=== PATIENT | male | born 1975 | race Caucasian/White ===

== ENCOUNTER 2019-01-31 12:51 | Emergency (ER) | payer OTHER ==
[2019-01-31] MEDS ORDERED: ONDANSETRON HCL INJ/PF 4 MG/2 ML SDV IV ONE ×2 (13:48→15:58)
[2019-01-31] MEDS ORDERED: KETOROLAC TROMETHAMINE INJ/PF 30 MG/1 ML SDV IV ONE (13:48)
--- NOTE | 2019-01-31 13:51 | ER Document Report ---
ED Medical Screen (RME) - General Chief Complaint: Possible Kidney Stone Stated Complaint: FLANK PAIN Time Seen by Provider: 01/31/19 13:47 Mode of Arrival: Ambulatory Information source: Patient Notes: Patient presents to the emergency department with complaints of left testicular pain started this morning. Reports he felt a little tingle last night and woke up this morning with pain increased pain as a day went on after he went to work. Denies trauma. Reports when he voided he had pure blood coming out. Denies testicular trauma. Reports history of kidney stones. Reports some left-sided pelvic pain. No other symptoms such as fever vomiting diarrhea. Patient denies lifting anything heavy. I have greeted and performed a rapid initial assessment of this patient. A comprehensive ED assessment and evaluation of the patient, analysis of test results and completion of the medical decision making process will be conducted by additional ED providers. Dictation of this chart was performed using voice recognition software; therefore, there may be some unintended grammatical errors. TRAVEL OUTSIDE OF THE [place] IN LAST 30 DAYS: No - Related Data Allergies/Adverse Reactions: No Known Allergies Allergy (Unverified 01/31/19 13:18) Past Medical History - Social History Frequency of alcohol use: None Drug Abuse: None Renal/ Medical History: Reports: Hx Kidney Stones. Denies: Hx Peritoneal Dialysis Past Surgical History: Reports: Hx Appendectomy, Hx Cholecystectomy, Hx Kidney (Renal Surgery) - stones removed Physical Exam - Vital signs Vitals: Temp Pulse Resp BP Pulse Ox 97.7 F 76 18 156/103 H 96 01/31/19 13:25 01/31/19 13:25 01/31/19 13:25 01/31/19 13:25 01/31/19 13:25 Course - Vital Signs Vital signs: Temp Pulse Resp BP Pulse Ox 97.7 F 76 18 156/103 H 96 01/31/19 13:25 01/31/19 13:25 01/31/19 13:25 01/31/19 13:25 01/31/19 13:25
--- NOTE | 2019-01-31 14:20 | ER Document Report ---
HPI - HPI Patient complains to provider of: left lower abdominal pain Time Seen by Provider: 01/31/19 13:47 Onset: This morning Onset/Duration: Sudden, Intermittent Quality of pain: Sharp Severity: Moderate Pain Level: 4 Context: 43 yr old male pt with the listed pmh, here for lower quadrant abdominal pain that radiates to his left testicle intermittently for 1 day. He has had this before in the past when he had a kidney stone. has been able to pass most of his stones in the past however has required lithotripsy twice. Denies any testi cular swelling or lesions. No trauma or injury. States feels like his usual kidney stones when he gets them. He states he has been told his white count has been a little high each time he has had this. no prior hx of cancer. No trauma or injury. no hx of diabetes or asthma. normal bms. he did have some hematuria and dysuria earlier. no frequency or anuria. no penile dc/rash/lesions, or concerns for stds. denies swelling or hx of hernias. no abd surgeries other than a remote appendectomy and cholecystectomy. no recent abx or steroids. hasn't taken anything for sx. no hx of gerd, gb dz, pancreatitis, gi bleed, ulcers, ibs, or crohns. no sick contacts. no uri sx. no rash. no excessive nsaid use or etoh. no recent illness. pain not worse with eating. denies changes in color or caliber of stool. no other associated sx. Associated Symptoms: None Exacerbated by: denies: Standing, Movement Relieved by: Remaining still Similar symptoms previously: Yes Recently seen / treated by doctor: No - ROS Systems Reviewed and Negative: Yes All other systems reviewed and negative - unless mentioned in the hpi Past Medical History - General Information source: Patient - Social History Smoking Status: Never Smoker Frequency of alcohol use: None Drug Abuse: None Patient has suicidal ideation: No Patient has homicidal ideation: No Renal/ Medical History: Reports: Hx Kidney Stones. Denies: Hx Peritoneal Dialysis Past Surgical History: Reports: Hx Appendectomy, Hx Cholecystectomy, Hx Kidney (Renal Surgery) - stones removed Vertical Provider Document - CONSTITUTIONAL Notes: >>>> PHYSICAL_EXAM: GENERAL_APPEARANCE: well_nourished, alert, cooperative, no_acute_distress, mild obvious_discomfort. Pleasant, obese middle aged white male, appears uncomfortable but not toxic, smiling, speaking in full sentences, easily sitting up, in no sign of resp distress, nontoxic, VITALS: reviewed, see vital signs table. HEAD: normocephalic. atraumatic. no kim signs. no raccoon eyes. EYES: PERRL, EOMI, (-)scleral icterus. NOSE: no_nasal_discharge. MOUTH: (-)decreased moisture. THROAT: no_tonsilar_inflammation/hypertrophy/exudate. no lymphadenopathy NECK: supple, no_neck_tenderness, full rom. full strength. no meningeal signs. BACK: no_back_tenderness. CHEST_WALL: no_chest_tenderness. LUNGS: no_wheezing, (-)accessory muscle use, good air exchange bilateral. HEART: normal_rate, normal_rhythm, ABDOMEN: normal_BS, soft, abdomen-diffuse, mildly ttp llq, obese abd exam some what limited (-)guarding, (-)rebound, no distension or peritoneal signs. neg murphys. neg mcburneys. neg heel strike. neg obturator. neg psoas. neg rovsign. no cva tenderness GENITALS: deferred by pt RECTAL: deferred EXTREMITIES:strength 5/5 in all_extremities, good pulses in all_extremities, no_edema, no_swelling\tenderness. full rom. normal gait. brisk cap refill. 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 SKIN: warm, dry, good_color, n _rash. no grossly visible overlying skin changes to suggest trauma unless otherwise noted. NEURO: motor_intact, sensory_intact. cranial nerves 2-12 intact, cerebellar fxn intact MENTAL_STATUS: normal_affect, speech_clear, oriented_X_3, responds_appropriately to questions. - INFECTION CONTROL TRAVEL OUTSIDE OF THE [place] IN LAST 30 DAYS: No Course - Re-evaluation Re-evalutation: 01/31/19 16:17 Patient here for left lower quadrant abdominal pain that radiates his left t esticle. History of renal stones in the past and it feels similar. He is afebrile, he has had no vomiting, his abdomen is soft and non-peritoneal nonsurgical on exam. His labs are notable for mild leukocytosis, normal renal function, and a urinary tract infection. He has no concerns for STDs. He denies any penile discharge or lesions. His scrotal ultrasound was negative per radiology and reviewed by myself. His renal ultrasound did show a nonobstructing punctate stone in the lower pole per radiology and reviewed by myself. Patient informed of his findings. He responded well to fluids, pain medication, and Flomax here. He was also given Rocephin here. Will discharge him with a urine strainer. Urine culture and gc/chlam is pending. Advised we will call with any abnormal results that require change in plan of care. Follow-up with urology 1 to 2 days. Return for any worsening symptoms. Patient understands agrees to plan. Will discharge him with Zofran, Keflex, Percocet, and Flomax. On reexam, pt improved with tx listed. remained stable. nontoxic. well appearing. pain controlled. tolerating po. requesting to go home. case discussed with ER Attending, Dr. sutherland, who directed and agrees with plan of care and advised no further workup indicated at this time and pt is stable for dc home with close f/u with pcp/specialist. Documentation achieved through voice recording which my lead to some occasional accidental typographical errors. Extensive efforts have been made to proof read documentation to make sure these are the least as possible. Category Date Time Status Saline Lock (ED) NOW Care 01/31/19 13:48 Active Renal Ultrasound [U/S RETROPERITON LTD] [US] Stat Exams 01/31/19 13:48 Completed U/S SCROTUM W/DOPPLER [US] Stat Exams 01/31/19 13:48 Completed ADD ON [ADD ON TESTING BLD IN LAB] [CHEM] Stat Lab 01/31/19 15:41 Ordered CBC WITH DIFF [HEME] Stat Lab 01/31/19 14:11 Completed CHLAM DIMAS PCR URINE INHOUSE [MO] Stat Lab 01/31/19 15:43 Uncollected COMPREHENSIVE METABOLIC PANEL [CHEM] Stat Lab 01/31/19 14:11 Completed LACTIC ACID SEPSIS [CHEM] Stat Lab 01/31/19 15:43 Ordered LIPASE [CHEM] Stat Lab 01/31/19 14:11 Completed URINALYSIS [URIN] Stat Lab 01/31/19 13:56 Completed URINE CULTURE [MC] Stat Lab 01/31/19 15:43 Uncollected Ceftriaxone 1 gm/D5w RTU [Rocephin RTU 1 gm/D5w 50 ml Med 01/31/19 15:42 Active Premix] 1 gm in 50 ml IV NOW Ketorolac Tromethamine [Toradol Inj/Pf 30 mg/1 ml Sdv] Med 01/31/19 13:48 Discontinued 30 mg IV NOW ONE Morphine Sulfate [Morphine 10 mg/ml Inj] Med 01/31/19 15:58 Once 4 mg IV NOW ONE Normal Saline 1000 ml [NaCl 0.9% 1000 ml IV Soln] 1,000 Med 01/31/19 15:05 Discontinued ml IV BOLUS Ondansetron HCl/Pf [Zofran Inj/Pf 4 mg/2 ml Sdv] Med 01/31/19 13:48 Discontinued 4 mg IV NOW ONE Ondansetron HCl/Pf [Zofran Inj/Pf 4 mg/2 ml Sdv] Med 01/31/19 15:58 Once 4 mg IV NOW ONE Tamsulosin HCl [Flomax 0.4 mg Cap.sr] Med 01/31/19 15:58 Once 0.4 mg PO NOW ONE 01/31/19 16:22 01/31/19 16:24 - Vital Signs Vital signs: Temp Pulse Resp BP Pulse Ox 97.7 F 76 18 156/103 H 96 01/31/19 13:25 01/31/19 13:25 01/31/19 13:25 01/31/19 13:25 01/31/19 13:25 - Laboratory Result Diagrams: 01/31/19 14:11 01/31/19 14:11 Laboratory results interpreted by me: 01/31/19 16:20 Labs- All tests 24 hr 01/31/19 01/31/19 01/31/19 13:56 14:11 14:11 WBC 15.8 H RBC 5.06 Hgb 15.2 Hct 45.7 MCV 90 MCH 30.0 MCHC 33.2 RDW 14.5 H Plt Count 248 Seg Neutrophils % 62.8 Lymphocytes % 27.9 Monocytes % 7.2 Eosinophils % 1.6 Basophils % 0.5 Absolute Neutrophils 9.9 H Absolute Lymphocytes 4.4 Absolute Monocytes 1.1 Absolute Eosinophils 0.2 Absolute Basophils 0.1 Sodium 139.6 Potassium 4.0 Chloride 103 Carbon Dioxide 29 Anion Gap 8 BUN 9 Creatinine 0.96 Est GFR ( Amer) > 60 Est GFR (Non-Af Amer) > 60 Glucose 76 Calcium 9.0 Total Bilirubin 0.6 Direct Bilirubin 0.2 Neonat Total Bilirubin Not Reportable Neonat Direct Bilirubin Not Reportable Neonat Indirect Bili Not Reportable AST 29 ALT 33 Alkaline Phosphatase 85 Total Protein 7.3 Albumin 4.1 Lipase Urine Color BROWN Urine Appearance CLEAR Urine pH 6.0 Ur Specific [place] 1.026 Urine Protein 100 H Urine Glucose (UA) NEGATIVE Urine Ketones TRACE H Urine Blood LARGE H Urine Nitrite NEGATIVE Urine Bilirubin NEGATIVE Urine Urobilinogen 2.0 H Ur Leukocyte Esterase TRACE H Urine WBC (Auto) >182 Urine RBC (Auto) >182 Urine Mucus (Auto) FEW Urine Ascorbic Acid 40 H 01/31/19 14:11 WBC RBC Hgb Hct MCV MCH MCHC RDW Plt Count Seg Neutrophils % Lymphocytes % Monocytes % Eosinophils % Basophils % Absolute Neutrophils Absolute Lymphocytes Absolute Monocytes Absolute Eosinophils Absolute Basophils Sodium Potassium Chloride Carbon Dioxide Anion Gap BUN Creatinine Est GFR ( Amer) Est GFR (Non-Af Amer) Glucose Calcium Total Bilirubin Direct Bilirubin Neonat Total Bilirubin Neonat Direct Bilirubin Neonat Indirect Bili AST ALT Alkaline Phosphatase Total Protein Albumin Lipase 307.5 H Urine Color Urine Appearance Urine pH Ur Specific [place] Urine Protein Urine Glucose (UA) Urine Ketones Urine Blood Urine Nitrite Urine Bilirubin Urine Urobilinogen Ur Leukocyte Esterase Urine WBC (Auto) Urine RBC (Auto) Urine Mucus (Auto) Urine Ascorbic Acid - Diagnostic Test Radiology reviewed: Image reviewed, Reports reviewed Radiology results interpreted by me: 01/31/19 16:20 Renal Ultrasound 01/31/19 13:48 IMPRESSION: 1. Tiny nonobstructive calculi present in the inferior pole. No hydronephrosis. 2. Decompressed urinary bladder. Scrotum Ultrasound 01/31/19 13:48 IMPRESSION: NORMAL SCROTAL ULTRASOUND. NO EVIDENCE OF TESTICULAR MASS OR TORSION. Discharge - Discharge Clinical Impression: Renal stone UTI (urinary tract infection) Qualifiers: Urinary tract infection type: site unspecified Hematuria presence: with hematuria Qualified Code(s): N39.0 - Urinary tract infection, site not specified Leukocytosis Qualifiers: Leukocytosis type: unspecified Qualified Code(s): D72.829 - Elevated white blood cell count, unspecified Condition: Good Disposition: HOME, SELF-CARE Instructions: Urinary Tract Infection ([facility]) Additional Instructions: Follow-up with PCP/urology 1 to 2 days. Return for any worsening symptoms. Ta ke medication as prescribed. Use a urine strainer. Drink plenty of water. Do not work, drive, or operate machinery while taking the pain medication. Prescriptions: Cephalexin Monohydrate [Keflex 500 mg Capsule] 500 mg PO Q6H 10 Days #40 capsule Ondansetron HCl [Zofran 4 mg Tablet] 1 tab PO Q8 #14 tablet Oxycodone HCl/Acetaminophen [Percocet 5-325 mg Tablet] 1 tab PO Q4 PRN #15 tablet PRN Reason: For Pain Tamsulosin HCl [Flomax] 0.4 mg PO DAILY #30 cap.er.24h
[2019-01-31 14:23] LABS: ABSOLUTE BASOPHILS # (AUTO) 0.1 10^3/uL (0.0-0.2); ABSOLUTE EOSINOPHILS # (AUTO) 0.2 10^3/uL (0.0-0.6); ABSOLUTE LYMPHOCYTES (AUTO) 4.4 10^3/uL (0.5-4.7); ABSOLUTE MONOCYTES (AUTO) 1.1 10^3/uL (0.1-1.4); ABSOLUTE NEUT (AUTO) 9.9 10^3/uL (1.7-8.2); BASOPHILS % (AUTO) 0.5 % (0-2); EOSINOPHILS % (AUTO) 1.6 % (0-6); HEMATOCRIT 45.7 % (37.9-51.0); HEMOGLOBIN 15.2 g/dL (13.5-17.0); LYMPHOCYTES % (AUTO) 27.9 % (13-45); MEAN CORPUSCULAR HGB CONC 33.2 g/dL (32.0-36.0); MEAN CORPUSCULAR VOLUME 90 fl (80-97); MONOCYTES % (AUTO) 7.2 % (3-13); PLATELET COUNT 248 10^3/uL (150-450); RED BLOOD COUNT 5.06 10^6/uL (4.35-5.55); RED CELL DISTRIBUTION WIDTH 14.5 % (11.5-14.0); SEGMENTED NEUTROPHILS % (AUTO) 62.8 % (42-78); TOTAL CELLS COUNTED % (AUTO) 100 %; WHITE BLOOD COUNT 15.8 10^3/uL (4.0-10.5)
[2019-01-31 14:45] LABS: ALANINE AMINOTRANSFERASE 33 U/L (21-72); ALBUMIN 4.1 g/dL (3.5-5.0); ALKALINE PHOSPHATASE 85 U/L (38-126); ANION GAP 8 (5-19); ASPARTATE AMINO TRANSFERASE 29 U/L (17-59); BILIRUBIN,DIRECT 0.2 mg/dL (0.0-0.4); BILIRUBIN,TOTAL 0.6 mg/dL (0.2-1.3); BLOOD UREA NITROGEN 9 mg/dL (7-20); CARBON DIOXIDE 29 mmol/L (22-30); CHLORIDE 103 mmol/L (98-107); GLUCOSE 76 mg/dL (75-110); SODIUM 139.6 mmol/L (137-145)
[2019-01-31 14:46] LABS: TOTAL PROTEIN 7.3 g/dL (6.3-8.2)
[2019-01-31] MEDS ORDERED: NORMAL SALINE 1000 ML 1,000 ML IV ONE (15:05)
[2019-01-31 15:13] LABS: APPEARANCE,URINE CLEAR; BILIRUBIN,URINE NEGATIVE (NEGATIVE); GLUCOSE, URINE NEGATIVE (NEGATIVE); KETONES,URINE TRACE mg/dL (NEGATIVE); LEUKOCYTE ESTERASE,URINE TRACE (NEGATIVE); NITRITE,URINE NEGATIVE (NEGATIVE); PROTEIN,URINE 100 mg/dL (NEGATIVE); URINE SPECIFIC GRAVITY 1.026
[2019-01-31 15:14] LABS: COLOR,URINE BROWN
--- NOTE | 2019-01-31 15:27 | RADIOLOGY REPORT (SQ) ---
EXAM DESCRIPTION: U/S SCROTUM W/DOPPLER COMPLETED DATE/TIME: 01/31/2019 3:14 pm REASON FOR STUDY: testicular pain, hx kidney stone, pelvic pain COMPARISON: None. TECHNIQUE: Static and realtime haro scale imaging of the scrotum and testes. Selected color Doppler and spectral images recorded to document blood flow. LIMITATIONS: None. FINDINGS: RIGHT: TESTICLE: Normal size. Normal echotexture. Normal blood flow. No mass. EPIDIDYMIS: Normal. HYDROCELE OR VARICOCELE: No. HERNIA OR EXTRA-TESTICULAR MASS: No. OTHER: No other significant finding. LEFT: TESTICLE: Normal size. Normal echotexture. Normal blood flow. No mass. EPIDIDYMIS: Normal. HYDROCELE OR VARICOCELE: No. HERNIA OR EXTRA-TESTICULAR MASS: No. OTHER: No other significant finding. IMPRESSION: NORMAL SCROTAL ULTRASOUND. NO EVIDENCE OF TESTICULAR MASS OR TORSION. TECHNICAL DOCUMENTATION: JOB ID: [id number] [employer]- All Rights Reserved Reading location - IP/workstation name: [email or web address]
--- NOTE | 2019-01-31 15:28 | RADIOLOGY REPORT (SQ) ---
EXAM DESCRIPTION: U/S RETROPERITON LTD COMPLETED DATE/TIME: 01/31/2019 3:14 pm REASON FOR STUDY: testicular pain, hx kidney stone, pelvic pain COMPARISON: None. TECHNIQUE: Dynamic and static grayscale images acquired of the kidneys and bladder and recorded on P ACS. Additional selected color Doppler and spectral images recorded. LIMITATIONS: None. FINDINGS: RIGHT KIDNEY: Normal size. Normal echogenicity. No solid or suspicious masses. No h ydronephrosis. No calcifications. LEFT KIDNEY: Normal size. Normal echogenicity. No solid or suspicious masses. No hydronephrosi s. Tiny nonobstructive calculi present in the inferior pole. BLADDER: Decompressed. OTHER FINDINGS: No other significant finding. IMPRESSION: 1. Tiny nonobstructive calculi present in the inferior pole. No hydronephrosis. 2. Decompressed urinary bladder. TECHNICAL DOCUMENTATION: JOB ID: [id number] [employer]- All Rights Reserved Reading location - IP/workstation name: [email or web address]
[2019-01-31] MEDS ORDERED: CEFTRIAXONE 1 GM/D5W RTU 1 GM/50 ML RTUPB IV ONE (15:42)
[2019-01-31] MEDS ORDERED: TAMSULOSIN HCL 0.4 MG CAP.SR.24H PO ONE (15:58)
[2019-01-31] MEDS ORDERED: MORPHINE SULFATE 10 MG/ML INJ IV ONE (15:58)
[2019-01-31 17:52] VITALS: BP 155/97
== END 2019-01-31 17:52 | disposition home or self-care (01) ==
LOC: ER 12:51
DX: N20.0 Calculus of kidney (principal); N39.0 Urinary tract infection, site not specified; D72.829 Elevated white blood cell count, unspecified; R10.32 Left lower quadrant pain; N50.812 Left testicular pain
CPT/HCPCS: 87491; 87591; 36415; 87086; 83690; 85025; 80053; 81001; 83605; 76775; 76870; 93976; J1885; J2270; J2405; J7030; J0696

== ENCOUNTER 2019-05-01 04:37 | Emergency (ER) | payer OTHER ==
[2019-05-01] MEDS ORDERED: HYDROMORPHONE HCL INJ/PF 2 MG/ML AMPULE ONE (04:58)
[2019-05-01] MEDS ORDERED: ONDANSETRON HCL INJ/PF 4 MG/2 ML SDV ONE (04:59)
[2019-05-01] MEDS ORDERED: HYDROMORPHONE HCL INJ/PF 2 MG/ML AMPULE IV ONE (05:11)
[2019-05-01] MEDS ORDERED: ONDANSETRON HCL INJ/PF 4 MG/2 ML SDV IV ONE (05:11)
[2019-05-01 05:50] LABS: ABSOLUTE BASOPHILS # (AUTO) 0.1 10^3/uL (0.0-0.2); ABSOLUTE EOSINOPHILS # (AUTO) 0.1 10^3/uL (0.0-0.6); ABSOLUTE MONOCYTES (AUTO) 1.1 10^3/uL (0.1-1.4); BASOPHILS % (AUTO) 0.6 % (0-2); EOSINOPHILS % (AUTO) 0.7 % (0-6); HEMATOCRIT 51.8 % (37.9-51.0); HEMOGLOBIN 17.3 g/dL (13.5-17.0); LYMPHOCYTES % (AUTO) 24.6 % (13-45); MEAN CORPUSCULAR HEMOGLOBIN 29.6 pg (27.0-33.4); MEAN CORPUSCULAR HGB CONC 33.5 g/dL (32.0-36.0); MEAN CORPUSCULAR VOLUME 89 fl (80-97); MONOCYTES % (AUTO) 8.8 % (3-13); PLATELET COUNT 266 10^3/uL (150-450); RED BLOOD COUNT 5.85 10^6/uL (4.35-5.55); RED CELL DISTRIBUTION WIDTH 13.2 % (11.5-14.0); SEGMENTED NEUTROPHILS % (AUTO) 65.3 % (42-78); TOTAL CELLS COUNTED % (AUTO) 100 %; WHITE BLOOD COUNT 12.2 10^3/uL (4.0-10.5)
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
[2019-05-01 06:08] LABS: ANION GAP 10 (5-19); BLOOD UREA NITROGEN 10 mg/dL (7-20); CALCIUM 9.8 mg/dL (8.4-10.2); CARBON DIOXIDE 28 mmol/L (22-30); CHLORIDE 101 mmol/L (98-107); GLUCOSE 102 mg/dL (75-110); POTASSIUM 4.1 mmol/L (3.6-5.0)
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
[2019-05-01] MEDS ORDERED: OXYCODONE-ACETAMINOPHEN 5-325 MG TABLET PO ONE (07:02)
[2019-05-01] MEDS ORDERED: METHOCARBAMOL 750 MG TABLET PO ONE (07:02)
[2019-05-01 07:28] LABS: APPEARANCE,URINE CLEAR; BILIRUBIN,URINE NEGATIVE (NEGATIVE); COLOR,URINE YELLOW; GLUCOSE, URINE NEGATIVE (NEGATIVE); KETONES,URINE NEGATIVE (NEGATIVE); LEUKOCYTE ESTERASE,URINE NEGATIVE (NEGATIVE); NITRITE,URINE NEGATIVE (NEGATIVE); PROTEIN,URINE NEGATIVE (NEGATIVE); URINE SPECIFIC GRAVITY 1.031; UROBILINOGEN,URINE NEGATIVE mg/dL (<2.0)
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
[2019-05-01] MEDS ORDERED: DIPH/PERTUSS(ACELL)/TETANUS VAC/PF 0.5 ML SYR (>=10YO) IM ONE (09:40)
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
[2019-05-01 09:56] VITALS: BP 147/89
== END 2019-05-01 10:10 | disposition home or self-care (01) ==
LOC: ER 04:37
DX: S06.0X1A Concussion with loss of consciousness of 30 minutes or less, initial encounter (principal); S39.012A Strain of muscle, fascia and tendon of lower back, initial encounter; S60.311A Abrasion of right thumb, initial encounter; S60.312A Abrasion of left thumb, initial encounter; M25.511 Pain in right shoulder; V59.9XXA Occupant (driver) (passenger) of pick-up truck or van injured in unspecified traffic accident, initial encounter; W22.11XA Striking against or struck by driver side automobile airbag, initial encounter; Y93.84 Activity, sleeping; D72.829 Elevated white blood cell count, unspecified
CPT/HCPCS: 99284; 90471; 96374; 96375; 36415; 85025; 80048; 81001; 71046; 73030; 70450; 72125; 74177; 90715; L0120; J3490; J1170; J2405